=== PATIENT | male | born 2000 | race Two or more races ===

== ENCOUNTER 2024-11-19 11:06 | Emergency (ER) | payer OTHER, SELFPAY ==
[~2024-11-19] VITALS: Ht 175.3 cm; Wt 108.0 kg
--- NOTE | 2024-11-19 11:25 | ED.PDOC ---
Back pain HPI HPI Comments 24 y/o M presents to the ED for CC of right shoulder pain. Patient states that he was fixing his AC unit last night (11/18/24) when swapping the old one for a new one, the AC unit fell directly on his right shoulder. Patient complains of current right shoulder pain with limited range of motion. Patient denies social history. Patient denies LOC, hitting his head, or other musculoskeletal pain. No other symptoms or modifying factors at this time. Time Seen by MD: 11:15 Reviewed Notes: Nurses Notes, Medications, Allergies Allergies: Coded Allergies: NO KNOWN ALLERGIES (Unverified , 11/19/24) Information Source: Patient Mode of Arrival: Ambulatory Timing: Hours Duration: Since onset Location of Back pain: (R) Lumbar, Other (RIGHT SHOULDER) Onset: Lifing History of: None Modifying Factors: Nothing Associated signs and symptoms: None Past Medical History PAST MEDICAL HISTORY: Denies Surgical History: Denies all surgeries Family History Family History: Unknown Social History Smoker: Cigarettes Alcohol: Denies ETOH Use Drugs: Denies Drug Use Lives In: Home Constitutional: denies: chills, diaphoresis, fatigue, fever, malaise, sweats, weakness, others EENTM: denies: blurred vision, double vision, ear bleeding, ear discharge, ear drainage, ear pain, ear ringing, eye pain, eye redness, hearing loss, mouth pain, mouth swelling, nasal discharge, nose bleeding, nose congestion, nose pain, photophobia, tearing, throat pain, throat swelling, voice changes, others Respiratory: denies: cough, hemoptysis, orthopnea, SOB at rest, shortness of breath, SOB with excertion, stridor, wheezing, others Cardiovascular: denies: chest pain, dizzy spells, diaphoresis, Dyspnea on exertion, edema, irregular heart beat, left arm pain, lightheadedness, palpitations, PND, syncope, others Gastrointestinal: denies: abdomen distended, abdominal pain, blood streaked bowels, constipated, diarrhea, dysphagia, difficulty swallowing, hematemesis, melena, nausea, poor appetite, poor fluid intake, rectal bleeding, rectal pain, vomiting, others Genitourinary: denies: burning, dysuria, flank pain, frequency, hematuria, incontinence, penile discharge, penile sore, pain, testicle pain, testicle swelling, urgency, others Neurological: denies: dizziness, fainting, headache, left sided numbness, left sided weakness, numbness, paresthesia, pre-existing deficit, right sided numbness, right sided weakness, seizure, speech problems, tingling, tremors, weakness, others Musculoskeletal: reports: muscle pain, muscle stiffness; denies: back pain, gout, joint pain, joint swelling, neck pain, others Integumetry: denies: bruises, change in color, change in hair/nails, dryness, laceration, lesions, lumps, rash, wounds, others Allergic/Immunocompromised: denies: Difficulty Healing, Frequent Infections, Hives, Itching, others Hematologic/Lymphatic: denies: anemia, blood clots, easy bleeding, easy bruising, swollen glands, others Endocrine: denies: excessive hunger, excessive sweating, excessive thirst, excessive urination, flushing, intolerance to cold, intolerance to heat, unexplained weight gain, unexplained weight loss, others Psychiatric: denies: anxiety, bipolar disorder, depression, hopeless, panic disorder, schizophrenia, sleepless, suicidal, others All Other Systems: Reviewed and Negative Physical Exam General Appearance: Mild Distress HEENT: Normal ENT Inspection, Pharynx Normal, TMs Normal Neck: Full Range of Motion, Non-Tender, Normal, Normal Inspection Respiratory: Chest Non-Tender, Lungs Clear, No Accessory Muscle Use, No Respiratory Distress, Normal Breath Sounds Cardiovascular: No Edema, No JVD, No Murmur, No Gallop, Normal Peripheral Pulses, Regular Rate/Rhythm Breast Exam: Deferred Gastrointestinal: No Organomegaly, Non Tender, No Pulsatile Mass, Normal Bowel Sounds, Soft Genitalia: Deferred Pelvic: Deferred Rectal: Deferred Extremities: No calf tenderness, Normal capillary refill, No pedal edema, Other (Right shoulder tenderness with decreased range of motion) Musculoskeletal : Apperance: Normal Neurologic: Alert, corporate director II-XII nml as Tested, No Motor Deficits, Normal Affect, Normal Mood, No Sensory Deficits Cerebellar Function: Normal Reflexes: Normal Skin: Dry, Normal Color, Warm Lymphatic: No Adenopathy Was a procedure done? Was a procedure done?: No Back Pain Differential Dx Differential Diagnosis: Fracture, Musculoskeletal Pain, Other (SPARIN) X-Ray, Labs, Meds, VS Vital Signs Date Time Temp Pulse Resp B/P (MAP) Pulse Ox O2 Delivery O2 Flow Rate FiO2 11/19/24 11:30 98.1 95 18 139/90 (106) 99 R SHOULDER XR: FINDINGS: No acute fracture or dislocation are identified about the right shoulder. No significant degenerative changes or loss of subacromial space. IMPRESSION: 1. No fracture or dislocation in the right shoulder. ATED BY: MARGO BRITO MD DICTATED DATE/TIME: 11/19/24 113 SIGNED BY: MARGO BRITO MD SIGNED DATE/TIME: 11/19/241134 CC: The patient was being placed in a sling The patient will follow up with the primary care doctor We did tell the patient that he would need to possibly have an MRI to address the shoulder further The patient was discharged The patient was placed in a sling Images Reviewed?: Images reviewed and evaluated by me Time of 1ST Reevaluation: 11:45 Reevaluation 1ST: Unchanged Patient Education/Counseling: Diagnosis, Treatment, Prognosis, Need For Follow Up Family Education/Counseling: No Family Present Departure 1 Departure Time of Disposition: 12:03 Impression: Primary Impression: Sprain of right shoulder Qualified Codes: S43.401A - Unspecified sprain of right shoulder joint, initial encounter Disposition: HOME / SELF CARE / HOMELESS Condition: Fair Discharged With: Self Critical Care Note Critical Care Time?: No Stability Stability form required: No Heart Score Heart Score: Heart Score Response (Comments) Value History N/A 0 EKG N/A 0 Age N/A 0 Risk Factors N/A 0 Troponin N/A 0 Total 0 I personally scribed for MAUREEN LUNA MD ([email or web address]) on 11/19/24 at 11:25. Electronically submitted by Kayleigh Benavides ([email or web address]). I personally scribed for MAUREEN LUNA MD ([email or web address]) on 11/19/24 at 11:56. Electronically submitted by Kayleigh Benavides ([email or web address]). MAUREEN LUNA MD Nov 19, 2024 11:25
--- NOTE | 2024-11-19 11:37 | DVH ---
EXAM: XY R SHOULDER 2+ VIEW XRAY HISTORY: trauma COMPARISON: None TECHNIQUE: 3 views of the right shoulder were performed. FINDINGS: No acute fracture or dislocation are identified about the right shoulder. No significant degenerativ e changes or loss of subacromial space. IMPRESSION: 1. No fracture or dislocation in the right shoulder.
[2024-11-19 12:27] VITALS: BP 120/64; PULSE 90; RESP 16; TEMP 98.9; O2SAT 96
== END 2024-11-19 12:33 | disposition home or self-care (01) ==
LOC: ER 11:06
DX: S43.491A Other sprain of right shoulder joint, initial encounter (principal); F17.210 Nicotine dependence, cigarettes, uncomplicated; X58.XXXA Exposure to other specified factors, initial encounter; Y93.89 Activity, other specified; Y92.89 Other specified places as the place of occurrence of the external cause; Y99.8 Other external cause status
CPT/HCPCS: 73030